=== PATIENT | female | born 1990 | race African-American/Black ===

== ENCOUNTER 2017-09-15 10:05 | Emergency (ER) | payer OTHER ==
[~2017-09-15] VITALS: Ht 165.1 cm; Wt 52.0 kg
[~2017-09-15 10:05] MED LIST: ALBU0.086 INH; TRAM50 PO; ULTR50TA PO
[2017-09-15 10:08] VITALS: BP 162/82; PULSE 101; RESP 15; TEMP 97.9; O2SAT 98
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
[2017-09-15] MEDS ORDERED: ACETAMINOPHEN 500 MG CPLT PO ONE (12:45)
[2017-09-15 13:08] VITALS: BP 119/66
== END 2017-09-15 13:08 | disposition home or self-care (01) ==
LOC: NEPD 10:05
DX: S16.1XXA Strain of muscle, fascia and tendon at neck level, initial encounter (principal); S39.012A Strain of muscle, fascia and tendon of lower back, initial encounter; V89.2XXA Person injured in unspecified motor-vehicle accident, traffic, initial encounter; J45.909 Unspecified asthma, uncomplicated; F17.200 Nicotine dependence, unspecified, uncomplicated
CPT/HCPCS: 72040; 72100; 84703; 99283